=== PATIENT | male | born 1940 | race Two or more races ===

== ENCOUNTER 2017-03-16 15:19 | Observation (INO) | payer MEDICARE ==
[~2017-03-16] VITALS: Ht 172.7 cm; Wt 88.2 kg
[2017-03-16] MEDS ORDERED: OMEP40CA2 PO (15:31)
[2017-03-16] MEDS ORDERED: AMOX500C PO (15:31)
[2017-03-16] MEDS ORDERED: GASTROGRAFIN SOLUTION 30ML (Q9963) As Ordered ONE (16:28)
[2017-03-16] MEDS ORDERED: GASTROGRAFIN SOLUTION 30ML PO ONE (16:40)
[2017-03-16] MEDS: LR 1,000 ML IV SCH (16:44)
[2017-03-16 17:05] LABS: BASO # 0.1 K/mm3 (0.0-0.2); EOS # 0.2 K/mm3 (0.0-0.50); EOS % 3.4 % (0.0-3.0); LARGE UNSTAINED CELL # 0.1 K/mm3 (0.0-0.4); LARGE UNSTAINED CELL % 1.4 % (0.0-4.0); LYMPH # 1.1 K/mm3 (1.5-4.5); LYMPH % 15.7 % (24.0-44.0); MEAN CORPUSCULAR HGB CONC 35.1 g/dl (32.0-36.5); MEAN CORPUSCULAR VOLUME 91.3 fl (80.0-96.0); MONO # 0.5 K/mm3 (0.0-0.8); MONO % 7.9 % (0.0-5.0); NEUTROPHILS # 4.7 K/mm3 (1.8-7.7); NEUTROPHILS % 70.6 % (36.0-66.0); PLATELET COUNT, AUTOMATED 242 k/mm3 (150-450); RED CELL DISTRIBUTION WIDTH 13.2 % (11.5-14.5); WHITE BLOOD COUNT 6.6 K/mm3 (4.0-10.0)
--- NOTE | 2017-03-16 17:05 | REP ---
Clinical: Dyspnea. Rule out pneumonia . Comparison: None . Technique: PA and lateral. Findings: The mediastinum and cardiac silhouette are normal. The lung costa are clear and without acute consolidation, effusion, or pneumothorax. The skeletal structures are intact and normal. Impression: 1. No acute cardiopulmonary process. Signed by Isaac El MD 03/16/2017 04:56 P
[2017-03-16] MEDS ORDERED: GASTROGRAFIN SOLUTION 30ML (Q9963) PO ONE (17:10)
[2017-03-16 17:18] LABS: ALBUMIN 3.5 GM/DL (3.2-5.2); ALKALINE PHOSPHATASE 78 U/L (45-117); ALT/SGPT 42 U/L (12-78); AMYLASE 52 U/L (25-115); ANION GAP 7 MEQ/L (8-16); AST/SGOT 30 U/L (15-37); BILIRUBIN,TOTAL 0.4 MG/DL (0.2-1.0); BLOOD UREA NITROGEN 13 MG/DL (7-18); CALCIUM LEVEL 8.5 MG/DL (8.8-10.2); CARBON DIOXIDE LEVEL 23 MEQ/L (21-32); CHLORIDE LEVEL 109 MEQ/L (98-107); CREATININE FOR GFR 1.06 MG/DL (0.70-1.30); GLOMERULAR FILTRATION RATE > 60.0 (>42); GLUCOSE, FASTING 89 MG/DL (83-110); POTASSIUM SERUM 4.5 MEQ/L (3.5-5.1); SODIUM LEVEL 139 MEQ/L (136-145)
[2017-03-16] MEDS ORDERED: ISOVUE-370 76% 100ML VIAL (Q9967) As Ordered ONE (17:57)
[2017-03-16] MEDS ORDERED: ASPIRIN 81 MG CHEW TABLET PO ONE (18:15)
--- NOTE | 2017-03-16 18:35 | REP ---
Clinical: Abdominal pain. Peritonitis. Technique: Axial contrast enhanced images from the lung bases to the pubic symphysis using oral and 100 ml Isovue 370 intravenous contrast material with coronal and sagittal re-formations. Findings: Lung bases are clear. Visualized heart and pericardium relatively normal. Atherosclerotic changes to the thoracic aorta and coronary arteries noted. Liver, spleen, pancreas, gallbladder, bilateral adrenal glands are normal. The kidneys demonstrate mild chronic-appearing perinephric stranding and subtle age-related changes as well as suspected small bilateral nonobstructing calculi without hydroureteronephrosis. 1.2 cm right renal cyst noted. The enteric system is without obstruction or acute inflammatory process. Few scattered diverticula noted without acute diverticulitis. Pelvis demonstrates normal bladder and moderately enlarged prostate gland along with small fat containing left inguinal hernia. No ascites. No free air. No adenopathy. Abdominal aorta with atherosclerotic changes and no evidence for aneurysm or dissection. Musculoskeletal structures demonstrate age-related changes without focal osseous abnormality. Impression: 1. No obvious acute abdominopelvic pathology appreciated. 2. Chronic changes as described above. 3. No ascites, adenopathy, or free air. Signed by Isaac El MD 03/16/2017 06:26 P
[2017-03-16] MEDS ORDERED: diphenhydrAMINE INJ 50MG/ML VIAL (J1200) IV STA (19:27)
--- NOTE | 2017-03-16 19:36 | ECGEPIP ---
Stationary ECG Study [facility] - ED Test Date: 2017-03-16 Pat Name: SOFIA VALENCIA Department: Room: - Gender: M Orthopedic Dentist: aruna : 1940 Requested By: RADHA Michelle PA-C Order Number: [id number] Reading MD: Zurdo Hastings Measurements Intervals [place] Rate: 47 P: 20 CT: 175 QRS: -42 QRSD: 112 T: 1 QT: 459 QTc: 407 Interpretive Statements SINUS BRADYCARDIA LEFT AXIS DEVIATION POSSIBLE ANTERIOR MYOCARDIAL INFARCTION, OF INDETERMINATE AGE NSTTW ABNORMALITIES NO PRIORS Electronically Signed On 03-16-2017 19:36:37 EDT by Zurdo Hastings
--- NOTE | 2017-03-16 20:10 | REPUSA ---
CT of the head Clinical history: altered level of consciousness. Protocol: Multiple axial CT images obtained with 5 mm slice thickness were obtained through the head without administration of contrast. Comparison: None. Findings: The ventricles and sulci are symmetric but prominent in size bilaterally. There are periven tricular areas of low attenuation throughout the deep white matter. There is no evidence of acute hem orrhage or infarct. There is no midline shift, mass effect, or extra-axial fluid collection. The osse ous structures are unremarkable. The visualized paranasal sinuses and mastoid air cells are clear. Impression: No acute hemorrhage or infarct. Findings are consistent with age-related atrophy and taxonomist jeannine small vessel ischemic disease.
[2017-03-16 20:14] LABS: T UPTAKE 40 % (33-40); THYROXINE (T4) 9.1 UG/DL (4.5-12.0)
[2017-03-16] MEDS ORDERED: dexameTHASONE 20 MG/5 ML VIAL (J1100) IV ONE (23:30)
[2017-03-17] MEDS ORDERED: ONDANSETRON 4MG/2ML VIAL (J2405) IV PRN (00:15)
[2017-03-17] MEDS ORDERED: ACETAMINOPHEN TAB 650MG DOSE (2X325MG) PO PRN (00:15)
[2017-03-17] MEDS: LR 1,000 ML IV SCH ×4 (00:15→07:26)
[2017-03-17 01:50] VITALS: BP 175/77
[2017-03-17 05:51] LABS: BASO % 0.6 % (0.0-1.0); EOS % 0.6 % (0.0-3.0); LARGE UNSTAINED CELL % 0.6 % (0.0-4.0); LYMPH # 0.7 K/mm3 (1.5-4.5); LYMPH % 10.5 % (24.0-44.0); MEAN CORPUSCULAR HEMOGLOBIN 31.6 pg (27.0-33.0); MEAN CORPUSCULAR HGB CONC 34.5 g/dl (32.0-36.5); MEAN CORPUSCULAR VOLUME 91.7 fl (80.0-96.0); MONO # 0.1 K/mm3 (0.0-0.8); MONO % 1.4 % (0.0-5.0); NEUTROPHILS # 5.1 K/mm3 (1.8-7.7); NEUTROPHILS % 86.4 % (36.0-66.0); PLATELET COUNT, AUTOMATED 257 k/mm3 (150-450); RED CELL DISTRIBUTION WIDTH 13.3 % (11.5-14.5)
[2017-03-17 06:00] VITALS: BP 141/63
[2017-03-17 06:10] LABS: ANION GAP 8 MEQ/L (8-16); BLOOD UREA NITROGEN 11 MG/DL (7-18); CALCIUM LEVEL 8.9 MG/DL (8.8-10.2); CARBON DIOXIDE LEVEL 23 MEQ/L (21-32); CHLORIDE LEVEL 109 MEQ/L (98-107); GLOMERULAR FILTRATION RATE > 60.0 (>42); GLUCOSE, FASTING 129 MG/DL (83-110); POTASSIUM SERUM 4.1 MEQ/L (3.5-5.1); SODIUM LEVEL 140 MEQ/L (136-145)
[2017-03-17] MEDS ORDERED: hydrOXYzine 25 MG TAB PO PRN (06:30)
--- NOTE | 2017-03-17 07:28 | HPEPDOC ---
General Date of Admission Mar 17, 2017 at 00:06 Attending Physician: ARTIS REGAN MD Chief Complaint The patient is a 76-year-old male admitted with a reason for visit of Rash. Source: Patient Exam Limitations: No limitations History of Present Illness This is a 76-year-old male admitted with PMH of GERD, chronic etoh use, likely early dementia, reported decreased po intake x4 months, brought in for diffuse macular/papular rash, confluent, blanching, pruritic, palm/sole sparing that came on suddenly after starting abx (amoxacillin) for tooth infection. Pt has no hx of allergy to abx and has taken amoxacillin w/o adverse reaction in past, but developed rash soon after started current course. No other changes in diet, detergents, clothing, exposures recently that would also account for pt's sudden diffuse rash. In addition, family reporting significant decrease in po intake. They report that this has occurred over last 4months and that pt has recently moved closer to children due to decreased po intake and concern that he may not be taking care of himself/failure to thrive. Pt himself says he hasn't noted any real significant change in his po intake other than the last 2 days, which are attributed to his tooth infxn. Today reports he is very hungry, since he hasn't really eaten in the last 2days. In addition to decreased po intake (2days per pt vs 4months per children) he has reported mild nausea as well. Duration for this is also questionable, few days v few months. No significant wt loss, fevers /chills, diarrhea, constipation, heat/cold intolerance. Home Medications Scheduled Amoxicillin (Amoxicillin) 500 Mg Cap, 500 MG PO Q8H, (Reported) For 10 days - Started 03/09/17 Omeprazole (Omeprazole) 40 Mg Cap, 40 MG PO DAILY, (Reported) Allergies Coded Allergies: Prednisone (Verified Adverse Reaction, Mild, dizziness, 03/16/17) Past Medical History Medical History 1. GERD. 2. Rash. Surgical History None. Family History Significant Family History: No pertinent family hx Social History * Smoker: non-smoker Alcohol: other (Vodka-reports 3 drinks daily) Drugs: denies Recent Travel/Sick Contacts: Reports: Recent travel Psychosocial History: No pertinent psych hx Review of Symptoms Constitutional: Denies: Chills, Fever, Weakness Eyes: Denies: Pain ENT: Denies: Head Aches, Dysphagia Skin: Reports: Rash, Itching, Denies: Lesions Pulmonary: Denies: Dyspnea, Cough, Pleuritic Chest Pain Cardiovascular: Denies: Chest Pain, Palpitations, Orthopnea Gastrointestinal: Reports: Nausea, Denies: Vomiting, Abdominal Pain, Diarrhea, Constipation Genitourinary: Denies: Dysuria, Frequency Hematologic: Denies: Bruising, Bleeding Excessively Endocrine: Denies: Polydipsia, Polyphagia, Polyuria Musculoskeletal: Denies: Neck Pain, Back Pain Neurological: Denies: Weakness, Numbness Psych: Reports: Mood Normal, Memory Issues, Denies: Anxiety, Depression Physical Examination General Exam: Positive: Alert, Cooperative, No Acute Distress Eye Exam: Positive: Conjunctiva & lids normal, Negative: Sclera icteric ENT Exam: Positive: Atraumatic, Mucous membr. moist/pink Neck Exam: Positive: Supple, Negative: JVD, Lymphadenopathy Chest Exam: Positive: Clear to auscultation, Negative: Rales, Rhonchi, Wheezing Heart Exam: Positive: Rate Normal, Regular Rhythm, Normal S1, Negative: Tachycardic, Bradycardic, Irregular Rhythm, Gallops, Murmurs, Rubs Telemetry: Positive: No significant arrhythmia Abdomen Exam: Positive: Normal bowel sounds, Soft, Negative: BS Hyperactive, BS Hypoactive, Tenderness, Hepatospenomegaly Extremity Exam: Negative: Clubbing, Cyanosis, Edema Skin Exam: Positive: Nl turgor and temperature, Rash, Pruritus, Negative: Breakdown Neuro Exam: Positive: Normal Speech, Strength at 5/5 X4 ext, Cranial Nerves 3- 12 NL Psych Exam: Positive: Mental status NL, Mood NL, Oriented x 3, Negative: Memory Intact Vital Signs Vital Signs Date Time Temp Pulse Resp B/P (MAP) Pulse Ox O2 Delivery O2 Flow Rate FiO2 03/17/17 01:50 97.7 51 19 175/77 (109) 96 Room Air Laboratory Data Labs 24H Laboratory Tests 2 03/16/17 16:43: White Blood Count 6.6, Red Blood Count 4.48, Hemoglobin 14.3, Hematocrit 40.9L, Mean Corpuscular Volume 91.3, Mean Corpuscular Hemoglobin 32.0, Mean Corpuscular Hemoglobin Concent 35.1, Red Cell Distribution Width 13.2, Platelet Count 242, Neutrophils (%) (Auto) 70.6H, Lymphocytes (%) (Auto) 15.7L, Monocytes (%) (Auto) 7.9H, Eosinophils (%) (Auto) 3.4H, Basophils (%) (Auto) 1.0 , Neutrophils # (Auto) 4.7, Lymphocytes # (Auto) 1.1L, Monocytes # (Auto) 0.5, Eosinophils # (Auto) 0.2, Basophils # (Auto) 0.1, Large Unclassified Cells % 1.4 , Large Unclassified Cells # 0.1, Anion Gap 7L, Glomerular Filtration Rate > 60.0, Lactic Acid Level 1.1, Blood Urea Nitrogen 13, Creatinine 1.06, Sodium Level 139, Potassium Level 4.5, Chloride Level 109H, Carbon Dioxide Level 23, Calcium Level 8.5L, Aspartate Amino Transf (AST/SGOT) 30, Alanine Aminotransferase (ALT/SGPT) 42, Total Creatine Kinase 113, Alkaline Phosphatase 78, Total Bilirubin 0.4, Total Protein 7.0, Albumin 3.5, Creatine Kinase MB 1.0 , Creatine Kinase MB Relative Index 0.88, Troponin I < 0.02, Albumin/Globulin Ratio 1.00, Amylase Level 52, Lipase 168, Thyroid Stimulating Hormone (TSH) 0.719, Free Thyroxine Index 3.6, Thyroxine (T4) 9.1, Triiodothyronine (T3) Uptake 40 03/16/17 20:10: Ammonia 28 03/16/17 20:21: Urine Appearance CLEAR, Urine Color STRAW, Urine pH 6.0, Urine Specific [place] 1.040, Urine Protein NEGATIVE, Urine Glucose (UA) NEGATIVE, Urine Ketones NEGATIVE, Urine Urobilinogen 0.2, Urine Bilirubin NEGATIVE, Urine Leukocyte Esterase NEGATIVE, Urine Blood NEGATIVE, Urine Nitrite NEGATIVE, Urine WBC (Auto ) 0, Urine RBC (Auto) 0, Urine Hyaline Casts (Auto) 0, Urine Bacteria (Auto) NEGATIVE, Urine Squamous Epithelial Cells 0, Urine Sperm (Auto) CBC/BMP Laboratory Tests 03/16/17 16:43 Red Blood Count 4.48, Mean Corpuscular Volume 91.3, Mean Corpuscular Hemoglobin 32.0, Mean Corpuscular Hemoglobin Concent 35.1, Red Cell Distribution Width 13.2 , Neutrophils (%) (Auto) 70.6 H, Lymphocytes (%) (Auto) 15.7 L, Monocytes (%) ( Auto) 7.9 H, Eosinophils (%) (Auto) 3.4 H, Basophils (%) (Auto) 1.0, Neutrophils # (Auto) 4.7, Lymphocytes # (Auto) 1.1 L, Monocytes # (Auto) 0.5, Eosinophils # (Auto) 0.2, Basophils # (Auto) 0.1, Calcium Level 8.5 L, Aspartate Amino Transf (AST/SGOT) 30, Alanine Aminotransferase (ALT/SGPT) 42, Total Creatine Kinase 113, Alkaline Phosphatase 78, Total Bilirubin 0.4, Total Protein 7.0, Albumin 3.5 Assessment/Plan This is a 76-year-old male admitted with PMH of GERD, chronic etoh use, likely early dementia, reported decreased po intake x4 months, brought in for diffuse macular/papular rash 1. Macular/papular rash-likely drug rash Rash improving-less apparent on arms and legs, with less pruritis Continue prn atarax Off amoxacillin 2. Decreased po intake Pt has no evidence of sig nutritional deficiency on basic lab work Albumin normal, normal Hgb with normal MCV Will order Dietary consult, calorie count, B12, Folate, Fe studies 3. Mild cognitive impairment-early dementia CT head neg for acute pathology TFT's normal Low suspicion of sepsis but given infected tooth, will check lactic acid, in addition to B12, Folate, RPR ?placement SW consult placed in ED, will also request PT consult 4. GERD PPI 5. DVT prophylaxis Heparin sq Plan / VTE VTE Prophylaxis Ordered?: Yes Daniel King MD Mar 17, 2017 05:43
[2017-03-17] MEDS ORDERED: methylPREDNISolone INJ 40 MG/1 ML VIAL (J2920) IV SCH (08:00)
[2017-03-17] MEDS ORDERED: HEPARIN SOD (PORCINE) 5000 UNITS/ML VIAL SC SCH (09:00)
[2017-03-17 10:02] LABS: FOLATE 8.9 NG/ML (>5.4); VITAMIN B12 LEVEL 306 PG/ML (247-911)
[2017-03-17] MEDS ORDERED: PRED10TA2 PO (10:35)
[2017-03-17] MEDS ORDERED: PRED20TA PO (10:35)
[2017-03-17] MEDS ORDERED: PRED50TA PO (10:35)
[2017-03-17] MEDS ORDERED: LEVA1TAB2 PO (12:55)
[2017-03-17 14:00] VITALS: BP 152/71
--- NOTE | 2017-03-29 22:53 | DSES ---
DATE OF ADMISSION: 03/16/2017 DATE OF DISCHARGE: 03/17/2017 CONSULTANTS: None. PROCEDURES: None. PRIMARY DIAGNOSIS: Macular/papular rash. SECONDARY DIAGNOSES: 1. Decreased oral intake. 2. Mild cognitive impairment. 3. Gastroesophageal reflux disease (GERD). DISCHARGE HOME MEDICATIONS: - Levaquin 500 by mouth daily for 7 days - prednisone 10 mg by mouth daily for 3 days - prednisone 20 mg by mouth for 3 days - prednisone 40 mg by mouth for 3 days - omeprazole 40 mg by mouth daily HOSPITAL COURSE: Mr. Carnes is a 76-year-old with multiple past medical history , who presented to emergency room (ER) due to developing diffuse macular/papular rash, blanching and pruritic, palms and soles sparing, after starting antibiotic (amoxicillin) for tooth infection. Patient has no history of allergy to antibiotic and has taken amoxicillin without a rash in the past. Patient was off the amoxicillin and continued as needed Atarax. Also patient did not any evidence of the nutritional deficiencies and basic lab work. Albumin normal. Normal hemoglobin and normal MCV. CT of the head was negative was negative for acute pathology regarding mild cognitive impairment and thyroid function tests (TFTs) were normal. There was a low suspicion for sepsis; however, given the infected tooth, we checked the lactic acid in addition to vitamin B12, folate and RPR, which were negative. At the time of discharge, patient was medically optimized. We started patient on prednisone. Also we performed CT of abdomen and pelvis with intravenous (IV) and oral contrast, which shows no obvious acute abdominopelvic pathology. Also, chest x-ray did not show any acute cardiopulmonary process. We asked the patient to followup with the primary care. Due to the tooth infection, we have started the patient on Levaquin 500 mg by mouth for 7 days. We asked the patient to followup with the dentist. DISCHARGE PLACEMENT: Home. FOLLOWUP: Please followup with your primary care. ACTIVITY: As tolerated by patient. My preceptor for this patient encounter was Dr. Delonte Junior. The preceptor was physically present in the building during the encounter and was fully available as needed. All aspects of the patient interview, examination, medical decision making process, and medical care plan development were reviewed and approved by the preceptor. The preceptor is aware and concurs with the plan as stated in the body of this note and will attest to such by his/her co-signature. I, Delonte Junior, have both independently examined this patient as well as reviewed the documentation. I have discussed in detail with the resident the findings and plan of treatment as documented in the residents documentation. I will continue to follow the patient and offer further guidance to the patients care as necessary during this hospital stay. WINSTON
[2017-05-30] MEDS ORDERED: OMEP20CA3 PO (14:58)
[2017-05-30] MEDS ORDERED: EXCETAB80 PO (14:58)
== END 2017-03-17 15:23 | disposition home or self-care (01) ==
LOC: M ED 15:19 → M MSPAV 15:20 → UNDOADMOB 03-17 00:06 → M ED INP 03-17 00:06 → M MSPAV 03-17 01:54 → UNDODISOB 03-17 15:23
PROVIDERS: ATTEND Internal Medicine
DX: R21 Rash and other nonspecific skin eruption (principal); G31.84 Mild cognitive impairment of uncertain or unknown etiology; K21.9 Gastro-esophageal reflux disease without esophagitis; Z79.899 Other long term (current) drug therapy
CPT/HCPCS: 36415; 70450; 71020; 74177; 80048; 80053; 81001; 82140; 82150; 82550; 82553; 82607; 82746; 83605; 83690; 84436; 84443; 84479; 84484; 85025; 86780; 93005; 93041; 96372; 96374; 96375; 99285; G0378; J1100; J1200; J2920; Q9963; Q9967

== ENCOUNTER → 2017-03-28 | Outpatient (REF) | payer MEDICARE ==
[~2017-03-28] MED LIST: AMOX500C PO; EXCETAB80 PO; LEVA1TAB2 PO; OMEP20CA3 PO; OMEP40CA2 PO; PRED10TA2 PO; PRED20TA PO; PRED50TA PO
[2017-03-28 19:50] LABS: ALBUMIN 4.2 GM/DL (3.2-5.2); ALBUMIN/GLOBULIN RATIO 1.17 (1.00-1.93); ALKALINE PHOSPHATASE 92 U/L (45-117); ALT/SGPT 48 U/L (12-78); ANION GAP 8 MEQ/L (8-16); AST/SGOT 27 U/L (15-37); BILIRUBIN,TOTAL 0.4 MG/DL (0.2-1.0); BLOOD UREA NITROGEN 16 MG/DL (7-18); CALCIUM LEVEL 9.3 MG/DL (8.8-10.2); CARBON DIOXIDE LEVEL 28 MEQ/L (21-32); CHLORIDE LEVEL 102 MEQ/L (98-107); CREATININE FOR GFR 1.28 MG/DL (0.70-1.30); GLOMERULAR FILTRATION RATE 58.2 (>42); GLUCOSE, FASTING 160 MG/DL (83-110); POTASSIUM SERUM 4.7 MEQ/L (3.5-5.1); SODIUM LEVEL 138 MEQ/L (136-145); TOTAL PROTEIN 7.8 GM/DL (6.4-8.2)
[2017-03-31 11:13] LABS: HEP C VIRUS AB SCREEN MEDICARE < 0.0 INDEX (<0.8)
== END ==
LOC: M SFHCADAM 13:21
PROVIDERS: ATTEND Family Medicine
DX: Z00.00 Encounter for general adult medical examination without abnormal findings (principal); Z11.59 Encounter for screening for other viral diseases
CPT/HCPCS: 80053; G0463; G0472

== ENCOUNTER → 2017-05-02 | Outpatient (CLI) | payer MEDICARE ==
[2017-05-02 09:52] LABS: ANION GAP 9 MEQ/L (8-16); BLOOD UREA NITROGEN 17 MG/DL (7-18); CALCIUM LEVEL 8.5 MG/DL (8.8-10.2); CARBON DIOXIDE LEVEL 25 MEQ/L (21-32); CHLORIDE LEVEL 107 MEQ/L (98-107); CREATININE FOR GFR 1.13 MG/DL (0.70-1.30); GLOMERULAR FILTRATION RATE > 60.0 (>42); GLUCOSE, FASTING 83 MG/DL (83-110); POTASSIUM SERUM 4.6 MEQ/L (3.5-5.1); SODIUM LEVEL 141 MEQ/L (136-145)
== END ==
LOC: M LAB 08:38
PROVIDERS: ATTEND Family Medicine
DX: R73.9 Hyperglycemia, unspecified (principal); N17.9 Acute kidney failure, unspecified
CPT/HCPCS: 36415; 80048; G0463

== ENCOUNTER 2017-05-24 21:32 | Emergency (ER) | payer MEDICARE ==
[~2017-05-24] VITALS: Ht 175.3 cm; Wt 86.4 kg
[~2017-05-24 21:32] MED LIST changes: -EXCETAB80 PO; -OMEP20CA3 PO
[2017-05-24 22:10] LABS: BASO % 0.9 % (0.0-1.0); EOS # 0.1 K/mm3 (0.0-0.50); EOS % 1.8 % (0.0-3.0); LARGE UNSTAINED CELL # 0.2 K/mm3 (0.0-0.4); LARGE UNSTAINED CELL % 2.9 % (0.0-4.0); LYMPH # 1.7 K/mm3 (1.5-4.5); MEAN CORPUSCULAR HEMOGLOBIN 31.8 pg (27.0-33.0); MEAN CORPUSCULAR HGB CONC 34.7 g/dl (32.0-36.5); MEAN CORPUSCULAR VOLUME 91.6 fl (80.0-96.0); MONO # 0.3 K/mm3 (0.0-0.8); MONO % 5.7 % (0.0-5.0); NEUTROPHILS # 2.8 K/mm3 (1.8-7.7); NEUTROPHILS % 54.7 % (36.0-66.0); PLATELET COUNT, AUTOMATED 282 k/mm3 (150-450); RED CELL DISTRIBUTION WIDTH 12.9 % (11.5-14.5); WHITE BLOOD COUNT 5.1 K/mm3 (4.0-10.0)
[2017-05-24 22:22] LABS: ANION GAP 11 MEQ/L (8-16); BLOOD UREA NITROGEN 19 MG/DL (7-18); CALCIUM LEVEL 8.5 MG/DL (8.8-10.2); CARBON DIOXIDE LEVEL 23 MEQ/L (21-32); CHLORIDE LEVEL 106 MEQ/L (98-107); CREATININE FOR GFR 1.11 MG/DL (0.70-1.30); GLOMERULAR FILTRATION RATE > 60.0 (>42); GLUCOSE, FASTING 146 MG/DL (83-110); POTASSIUM SERUM 4.2 MEQ/L (3.5-5.1); SODIUM LEVEL 140 MEQ/L (136-145)
[2017-05-24] MEDS ORDERED: ACETAMINOPHEN TAB 650MG DOSE (2X325MG) PO ONE (22:30)
[2017-05-24] MEDS ORDERED: MORPHINE 2 MG/ML 1ML SYRINGE IV PRN (22:45)
[2017-05-24] MEDS ORDERED: ONDANSETRON 4MG/2ML VIAL (J2405) IV ONE (22:45)
[2017-05-24 23:15] LABS: VENOUS BASE EXCESS -2.5 (-2.0-2.0); VENOUS O2 SATURATION 82.4 % (60.0-80.0); VENOUS PARTIAL PRESSURE CO2 45.1 mmHg (38.0-50.0); VENOUS PARTIAL PRESSURE O2 49.3 mmHg (30.0-50.0); VENOUS TOTAL CO2 24.9 MEQ/L (24.0-28.0)
--- NOTE | 2017-05-24 23:44 | REP ---
Clinical: Altered mental status. Comparison: 03/16/2017 . Findings: Age-related atrophy and microvascular ischemic changes are appreciated. The ventricles and sulci are symmetric. Acosta-white differentiation is maintained. There is no evidence for acute intracranial hemorrhage, mass/mass effect, pathology or infarction. No extra-axial fluid collection. Calvarium is intact. Paranasal sinuses and mastoid air cells are clear. Impression: Age related atrophy and microvascular ischemic changes. No acute intracranial hemorrhage, infarction, or mass/mass effect. Signed by Isaac El MD 05/24/2017 11:36 P
[2017-05-25] MEDS ORDERED: KETOROLAC 30 MG/ML VIAL (J1885) IV ONE (00:15)
[2017-05-25] MEDS ORDERED: diphenhydrAMINE INJ 50MG/ML VIAL (J1200) IV ONE ×2 (00:15→01:15)
[2017-05-25] MEDS ORDERED: METOCLOPRAMIDE INJ 10MG/2ML VIAL (J2765) IV ONE ×2 (00:15→01:15)
[2017-05-25 04:38] VITALS: BP 157/67
--- NOTE | 2017-05-25 09:06 | REP ---
Clinical: Altered mental status. Comparison: 03/16/2017. Findings: The mediastinum and cardiac silhouette are stable and within normal limits for portable technique. The lung costa are clear without acute consolidation, effusion, or pneumothorax. Skeletal structures are intact. Impression: No acute cardiopulmonary process appreciated. Signed by Isaac El MD 05/25/2017 07:52 A
--- NOTE | 2017-05-25 10:21 | ECGEPIP ---
Stationary ECG Study [facility] - ED Test Date: 2017-05-24 Pat Name: SOFIA VALENCIA Department: Room: - Gender: M Anthropology Instructor: FosterB: 1940 Requested By: ADRIANNE Jamse Order Number: [id number] Reading MD: Yesenia Singh Measurements Intervals [place] Rate: 41 P: 15 [place]: 174 QRS: -42 QRSD: 117 T: -18 QT: 508 QTc: 422 Interpretive Statements SINUS BRADYCARDIA MARKED LEFT AXIS DEVIATION POSSIBLE ANTERIOR MYOCARDIAL INFARCTION, OF INDETERMINATE AGE NSTTW ABNORMALITY DECREASED RATE 03/16/17 Electronically Signed On 05-25-2017 10:21:20 EDT by Yesenia Singh
[2017-05-30] MEDS ORDERED: OMEP20CA3 PO (14:58)
[2017-05-30] MEDS ORDERED: EXCETAB80 PO (14:58)
== END 2017-05-25 04:39 | disposition home or self-care (01) ==
LOC: M ED 21:32
DX: G43.909 Migraine, unspecified, not intractable, without status migrainosus (principal); Z79.899 Other long term (current) drug therapy
CPT/HCPCS: 70450; 71010; 80048; 81001; 82550; 82553; 82803; 83036; 83605; 84484; 85025; 87086; 93005; 93041; 94760; 96374; 96375; 96376; 99285; J1200; J1885; J2405; J2765

== ENCOUNTER 2017-06-04 09:41 | Outpatient (CLI) | payer MEDICARE ==
[~2017-06-04] VITALS: Ht 175.3 cm; Wt 86.2 kg
[~2017-06-04 09:41] MED LIST changes: +EXCETAB80 PO; +OMEP20CA3 PO
[2017-06-04] MEDS ORDERED: NS 1,000 ML IV ONE (10:00)
[2017-06-04] MEDS ORDERED: LIDOCAINE 2% INJ 100 MG/5 ML SDV (FOR ANES.) As Ordered ONE ×2 (11:47→12:09)
[2017-06-04] MEDS ORDERED: PROPOFOL 200 MG/20 ML VIAL As Ordered ONE ×2 (11:47→12:09)
--- NOTE | 2017-06-04 12:26 | ROOR ---
Patient Name: Gautam Carnes Procedure Date: 06/04/2017 11:14 AM Date of : 1940 Age: 76 Room: [facility] Gender: Male Note Status: Finalized Procedure: Upper GI endoscopy Indications: Suspected gastro-esophageal reflux disease Providers: Yaakov Purcell MD Referring MD: Zandra Price DO Requesting Provider: Medicines: Monitored Anesthesia Care Complications: No immediate complications. Procedure: Pre-Anesthesia Assessment: - Prior to the procedure, a History and Physical was performed, and patient medications and allergies were reviewed. The patient is competent. The risks and benefits of the procedure and the sedation options and risks were discussed with the patient. All questions were answered and informed consent was obtained. Patient identification and proposed procedure were verified by the physician, the nurse and the anesthesiologist in the endoscopy suite. Mental Status Examination: alert and oriented. Airway Examination: normal oropharyngeal airway and neck mobility. Respiratory Examination: clear to auscultation. CV Examination: normal. Prophylactic Antibiotics: The patient does not require prophylactic antibiotics. Prior Anticoagulants: The patient has taken no previous anticoagulant or antiplatelet agents. ASA Grade Assessment: II - A patient with mild systemic disease. After reviewing the risks and benefits, the patient was deemed in satisfactory condition to undergo the procedure. The anesthesia plan was to use monitored anesthesia care (MAC). Immediately prior to administration of medications, the patient was re-assessed for adequacy to receive sedatives. The heart rate, respiratory rate, oxygen saturations, blood pressure, adequacy of pulmonary ventilation, and response to care were monitored throughout the procedure. The physical status of the patient was re-assessed after the procedure. The Endoscope was introduced through the mouth, and advanced to the third part of duodenum. The upper GI endoscopy was accomplished without difficulty. The patient tolerated the procedure well. Findings: The Z-line was irregular and was found 41 cm from the incisors. This was biopsied with a cold forceps for evaluation to rule out Newby's Esophagus. Estimated blood loss was minimal. Patchy moderate inflammation characterized by congestion (edema), erosions and erythema was found in the gastric antrum. Biopsies were taken with a cold forceps for histology. Biopsies were taken with a cold forceps for Helicobacter pylori testing. The third portion of the duodenum was normal. Impression: - Z-line irregular, 41 cm from the incisors. Biopsied. - Chronic gastritis. Biopsied. - Normal third portion of the duodenum. Recommendation: - Discharge patient to home (ambulatory). - Continue present medications. - Await pathology results. - Telephone my office for pathology results in 2 weeks. Yaakov Purcell MD Yaakov Purcell MD 06/04/2017 12:26:21 PM This report has been signed electronically. Number of Addenda: 0 Note Initiated On: 06/04/2017 11:14 AM Estimated Blood Loss: Estimated blood loss was minimal.
--- NOTE | 2017-06-04 12:29 | ROOR ---
Patient Name: Gautam Carnes Procedure Date: 06/04/2017 11:15 AM Date of : 1940 Age: 76 Room: [facility] Gender: Male Note Status: Finalized Procedure: Colonoscopy Indications: Screening for colorectal malignant neoplasm Providers: Yaakov Purcell MD Referring MD: Zandra Price DO Requesting Provider: Medicines: Monitored Anesthesia Care Complications: No immediate complications. Procedure: Pre-Anesthesia Assessment: - Prior to the procedure, a History and Physical was performed, and patient medications and allergies were reviewed. The patient is competent. The risks and benefits of the procedure and the sedation options and risks were discussed with the patient. All questions were answered and informed consent was obtained. Patient identification and proposed procedure were verified by the physician, the nurse and the anesthesiologist in the endoscopy suite. Mental Status Examination: alert and oriented. Airway Examination: normal oropharyngeal airway and neck mobility. Respiratory Examination: clear to auscultation. CV Examination: normal. Prophylactic Antibiotics: The patient does not require prophylactic antibiotics. Prior Anticoagulants: The patient has taken no previous anticoagulant or antiplatelet agents. ASA Grade Assessment: II - A patient with mild systemic disease. After reviewing the risks and benefits, the patient was deemed in satisfactory condition to undergo the procedure. The anesthesia plan was to use monitored anesthesia care (MAC). Immediately prior to administration of medications, the patient was re-assessed for adequacy to receive sedatives. The heart rate, respiratory rate, oxygen saturations, blood pressure, adequacy of pulmonary ventilation, and response to care were monitored throughout the procedure. The physical status of the patient was re-assessed after the procedure. The Colonoscope was introduced through the anus and advanced to the terminal ileum, with identification of the appendiceal orifice and IC valve. The colonoscopy was performed without difficulty. The patient tolerated the procedure well. The quality of the bowel preparation was adequate to identify polyps. Findings: The perianal and digital rectal examinations were normal. A few small-mouthed diverticula were found in the sigmoid colon. Estimated blood loss: none. The colon (entire examined portion) appeared normal. The terminal ileum appeared normal. Impression: - Diverticulosis in the sigmoid colon. - The entire examined colon is normal. - The examined portion of the ileum was normal. - No specimens collected. Recommendation: - Discharge patient to home (ambulatory). - Repeat colonoscopy in 10 years for screening purposes. Yaakov Purcell MD Yaakov Purcell MD 06/04/2017 12:28:47 PM This report has been signed electronically. Number of Addenda: 0 Note Initiated On: 06/04/2017 11:15 AM Estimated Blood Loss: Estimated blood loss: none.
[2017-06-04 12:55] VITALS: BP 155/79
== END 2017-06-04 13:20 | disposition home or self-care (01) ==
LOC: M OPP 09:41
PROVIDERS: ATTEND Surgery
DX: Z12.11 Encounter for screening for malignant neoplasm of colon (principal); K57.30 Diverticulosis of large intestine without perforation or abscess without bleeding; K21.9 Gastro-esophageal reflux disease without esophagitis; K22.8 Other specified diseases of esophagus; K29.70 Gastritis, unspecified, without bleeding; R00.8 Other abnormalities of heart beat; R23.3 Spontaneous ecchymoses; M19.90 Unspecified osteoarthritis, unspecified site; G43.909 Migraine, unspecified, not intractable, without status migrainosus; Z86.73 Personal history of transient ischemic attack (TIA), and cerebral infarction without residual deficits; R06.02 Shortness of breath; Z88.8 Allergy status to other drugs, medicaments and biological substances; Z88.0 Allergy status to penicillin; Z79.899 Other long term (current) drug therapy; Z80.1 Family history of malignant neoplasm of trachea, bronchus and lung
CPT/HCPCS: 43239; 88305; G0121

== ENCOUNTER 2017-08-09 19:02 | Emergency (ER) | payer MEDICARE ==
[~2017-08-09] VITALS: Ht 172.7 cm; Wt 86.4 kg
[2017-08-09 19:10] VITALS: BP 132/79
[2017-08-09] MEDS ORDERED: DOXY100C37 PO (20:27)
[2017-08-09] MEDS ORDERED: DOXYCYCLINE HYCLATE 100 MG TAB PO ONE (20:30)
== END 2017-08-09 20:40 | disposition home or self-care (01) ==
LOC: M ED 19:02
DX: S20.362A Insect bite (nonvenomous) of left front wall of thorax, initial encounter (principal); W57.XXXA Bitten or stung by nonvenomous insect and other nonvenomous arthropods, initial encounter; Y92.89 Other specified places as the place of occurrence of the external cause; Y93.89 Activity, other specified; Y99.8 Other external cause status; Z79.899 Other long term (current) drug therapy; Z88.0 Allergy status to penicillin; Z88.8 Allergy status to other drugs, medicaments and biological substances

== ENCOUNTER → 2017-11-28 | Outpatient (REF) | payer MEDICARE ==
[2017-11-28 12:44] LABS: BASO # 0.1 10^3/uL (0.0-0.2); BASO % 1.1 % (0.0-1.0); EOS # 0.1 10^3/uL (0.0-0.50); EOS % 1.4 % (0.0-3.0); HEMATOCRIT 45.3 % (42.0-52.0); HEMOGLOBIN 15.3 g/dl (14.0-18.0); IMMATURE GRANULOCYTE % 0.6 % (0-3.0); LYMPH # 2.2 10^3/uL (1.5-4.5); LYMPH % 33.7 % (24.0-44.0); MEAN CORPUSCULAR HEMOGLOBIN 30.5 pg (27.0-33.0); MEAN CORPUSCULAR HGB CONC 33.8 g/dl (32.0-36.5); MEAN CORPUSCULAR VOLUME 90.4 fl (80.0-96.0); MONO # 0.7 10^3/uL (0.0-0.8); MONO % 10.2 % (0.0-5.0); NEUTROPHILS # 3.5 10^3/uL (1.8-7.7); PLATELET COUNT, AUTOMATED 312 10^3/uL (150-450); RED BLOOD COUNT 5.01 10^6/uL (4.30-6.10); RED CELL DISTRIBUTION WIDTH 13.2 % (11.5-14.5); WHITE BLOOD COUNT 6.7 10^3/uL (4.0-10.0)
[2017-11-28 13:09] LABS: ALBUMIN 4.2 GM/DL (3.2-5.2); ALBUMIN/GLOBULIN RATIO 1.31 (1.00-1.93); ALKALINE PHOSPHATASE 74 U/L (45-117); ALT/SGPT 40 U/L (12-78); ANION GAP 7 MEQ/L (8-16); AST/SGOT 17 U/L (7-37); BILIRUBIN,TOTAL 0.5 MG/DL (0.2-1.0); BLOOD UREA NITROGEN 18 MG/DL (7-18); CALCIUM LEVEL 9.2 MG/DL (8.8-10.2); CARBON DIOXIDE LEVEL 28 MEQ/L (21-32); CHLORIDE LEVEL 105 MEQ/L (98-107); CREATININE FOR GFR 1.19 MG/DL (0.70-1.30); GLOMERULAR FILTRATION RATE > 60.0 (>42); GLUCOSE, FASTING 93 MG/DL (70-100); POTASSIUM SERUM 4.7 MEQ/L (3.5-5.1); SODIUM LEVEL 140 MEQ/L (136-145); TOTAL PROTEIN 7.4 GM/DL (6.4-8.2)
[2017-11-28 14:11] LABS: ERYTHROCYTE SEDIMENTATION RATE 6 mm/hr (0-20)
== END ==
LOC: M SFHCADAM 07:59
DX: R51 Headache (principal)
CPT/HCPCS: 80053

== ENCOUNTER → 2017-12-31 | Outpatient (REF) | payer MEDICARE ==
[2017-12-31 13:29] LABS: BASO # 0.1 10^3/uL (0.0-0.2); EOS # 0.1 10^3/uL (0.0-0.50); EOS % 1.4 % (0.0-3.0); HEMATOCRIT 45.1 % (42.0-52.0); HEMOGLOBIN 15.5 g/dl (13.5-17.5); IMMATURE GRANULOCYTE % 0.5 % (0-3.0); LYMPH # 1.7 10^3/uL (1.5-4.5); LYMPH % 28.5 % (24.0-44.0); MEAN CORPUSCULAR HEMOGLOBIN 31.3 pg (27.0-33.0); MEAN CORPUSCULAR HGB CONC 34.4 g/dl (32.0-36.5); MEAN CORPUSCULAR VOLUME 91.1 fl (80.0-96.0); MONO # 0.6 10^3/uL (0.0-0.8); MONO % 10.2 % (0.0-5.0); NEUTROPHILS # 3.4 10^3/uL (1.8-7.7); NEUTROPHILS % 58.4 % (36.0-66.0); PLATELET COUNT, AUTOMATED 307 10^3/uL (150-450); RED BLOOD COUNT 4.95 10^6/uL (4.30-6.10); RED CELL DISTRIBUTION WIDTH 13.2 % (11.5-14.5); WHITE BLOOD COUNT 5.8 10^3/uL (4.0-10.0)
[2017-12-31 14:14] LABS: ERYTHROCYTE SEDIMENTATION RATE 5 mm/hr (0-20)
[2017-12-31 14:20] LABS: ALBUMIN 4.3 GM/DL (3.2-5.2); ALBUMIN/GLOBULIN RATIO 1.23 (1.00-1.93); ALKALINE PHOSPHATASE 78 U/L (45-117); ALT/SGPT 45 U/L (12-78); ANION GAP 5 MEQ/L (8-16); AST/SGOT 26 U/L (7-37); BILIRUBIN,TOTAL 0.7 MG/DL (0.2-1.0); BLOOD UREA NITROGEN 16 MG/DL (7-18); CALCIUM LEVEL 9.4 MG/DL (8.8-10.2); CARBON DIOXIDE LEVEL 27 MEQ/L (21-32); CHLORIDE LEVEL 108 MEQ/L (98-107); CHOLESTEROL LEVEL 242 MG/DL (<200); CHOLESTEROL RISK RATIO 6.722 (<5); CREATININE FOR GFR 1.34 MG/DL (0.70-1.30); GLUCOSE, FASTING 95 MG/DL (70-100); HDL CHOLESTEROL 36 MG/DL (>40); LDL CHOLESTEROL 160.8 MG/DL (<100); NON-HDL-C 206 MG/DL; POTASSIUM SERUM 4.3 MEQ/L (3.5-5.1); RHEUMATOID FACTOR QUANT < 10.0 IU/ML (<15.0); SODIUM LEVEL 140 MEQ/L (136-145); TOTAL PROTEIN 7.8 GM/DL (6.4-8.2); TRIGLYCERIDES LEVEL 226 MG/DL (<150)
[2017-12-31 14:30] LABS: ESTIMATED AVERAGE GLUCOSE 108 MG/DL (60-110); HEMOGLOBIN A1c 5.4 %
[2017-12-31 15:00] LABS: VITAMIN B12 LEVEL 344 PG/ML
[2017-12-31 15:01] LABS: FOLATE 10.8 NG/ML
[2018-01-04 10:08] LABS: ANTINUCLEAR ANTIBODIES DIRECT Negative (Negative); VITAMIN B1 LEVEL WHOLE BLOOD 119.6 nmol/L (66.5-200.0); VITAMIN B6,PYRIDOXAL PHOSPHATE 6.5 ug/L (5.3-46.7); VITAMIN E(GAMMA TOCOPHEROL) 2.4 mg/L (0.5-4.9)
== END ==
LOC: M LABNEURO 07:59
DX: E11.9 Type 2 diabetes mellitus without complications (principal); E07.9 Disorder of thyroid, unspecified; Z86.73 Personal history of transient ischemic attack (TIA), and cerebral infarction without residual deficits; F03.90 Unspecified dementia, unspecified severity, without behavioral disturbance, psychotic disturbance, mood disturbance, and anxiety; Z11.3 Encounter for screening for infections with a predominantly sexual mode of transmission
CPT/HCPCS: 82746

== ENCOUNTER → 2018-01-09 | Outpatient (CLI) | payer MEDICARE | LOC: M RAD 09:28 | DX: I65.22 Occlusion and stenosis of left carotid artery (principal) | CPT/HCPCS: 93880 ==

== ENCOUNTER 2018-12-10 15:03 | Emergency (ER) | payer MEDICARE ==
[~2018-12-10 15:03] MED LIST changes: +DOXY100C37 PO
[2018-12-10] MEDS ORDERED: NS 1,000 ML IV ONE ×2 (16:00→18:15)
[2018-12-10] MEDS ORDERED: ONDANSETRON 4MG/2ML VIAL (J2405) IV ONE (16:00)
[2018-12-10 16:10] LABS: BASO % 0.3 % (0.0-1.0); EOS # 0.1 10^3/uL (0.0-0.50); EOS % 1.3 % (0.0-3.0); HEMATOCRIT 44.9 % (42.0-52.0); HEMOGLOBIN 15.4 g/dl (13.5-17.5); LYMPH # 2.1 10^3/uL (1.5-4.5); LYMPH % 23.3 % (24.0-44.0); MEAN CORPUSCULAR HEMOGLOBIN 31.4 pg (27.0-33.0); MEAN CORPUSCULAR HGB CONC 34.3 g/dl (32.0-36.5); MEAN CORPUSCULAR VOLUME 91.4 fl (80.0-96.0); MONO # 0.8 10^3/uL (0.0-0.8); MONO % 9.1 % (0.0-5.0); NEUTROPHILS # 5.9 10^3/uL (1.8-7.7); NEUTROPHILS % 65.8 % (36.0-66.0); PLATELET COUNT, AUTOMATED 292 10^3/uL (150-450); RED BLOOD COUNT 4.91 10^6/uL (4.30-6.10)
--- NOTE | 2018-12-10 16:10 | REP ---
Chest one-view HISTORY: Chest pain Comparison: 05/24/2017 The lungs are clear. The heart is normal in size. The pulmonary vasculature is normal in appearance. Impression: No acute disease. Electronically Signed by Ted Vega MD 12/10/2018 04:02 P
[2018-12-10 16:22] LABS: ALBUMIN 4.3 GM/DL (3.2-5.2); ALT/SGPT 38 U/L (12-78); AMYLASE 46 U/L (25-115); BILIRUBIN,DIRECT < 0.1 MG/DL (0.0-0.2); BILIRUBIN,TOTAL 0.7 MG/DL (0.2-1.0); BLOOD UREA NITROGEN 14 MG/DL (7-18); CALCIUM LEVEL 9.2 MG/DL (8.8-10.2); CARBON DIOXIDE LEVEL 25 MEQ/L (21-32); CHLORIDE LEVEL 108 MEQ/L (98-107); CK-MB VALUE MASS < 1.0 NG/ML (<3.6); CPK CREATINE PHOSPHOKINASE 88 U/L (39-308); CREATININE FOR GFR 1.12 MG/DL (0.70-1.30); GLOMERULAR FILTRATION RATE > 60.0 (>42); GLUCOSE, FASTING 102 MG/DL (70-100); LIPASE 72 U/L (73-393); MB/CK RELATIVE INDEX 1.14 (< OR =4); POTASSIUM SERUM 4.6 MEQ/L (3.5-5.1); SODIUM LEVEL 139 MEQ/L (136-145); TOTAL PROTEIN 7.3 GM/DL (6.4-8.2); TROPONIN I < 0.02 NG/ML (< 0.10)
[2018-12-10] MEDS ORDERED: ISOVUE-370 76% 100ML VIAL (Q9967) As Ordered ONE (16:33)
--- NOTE | 2018-12-10 17:48 | REP ---
Clinical: Abdominal pain. Technique: Axial contrast enhanced images from the lung bases to the pubic symphysis using 100 ml Isovue 370 intravenous contrast material with coronal and sagittal re-formations. Comparison: 03/16/2017. Findings: Lung bases are clear. Visualized heart and pericardium within normal limits. Diffuse fatty infiltration to the liver noted without focal hepatic lesion. Spleen, pancreas, gallbladder, bilateral adrenal glands are normal. Kidneys demonstrate age-related cortical atrophic change and 1 cm right renal cyst along with mild chronic-appearing perinephric stranding. The enteric system is without obstruction or obvious acute inflammatory process although mild enteritis cannot be excluded. Sigmoid diverticula noted without acute diverticulitis. Pelvis demonstrates enlarged prostate gland measuring 5.7 cm maximal diameter with mass effect on the base of the bladder. No ascites. No free air. No adenopathy. Abdominal aorta demonstrates atherosclerotic changes without aneurysm or dissection. Musculoskeletal structures demonstrate degenerative changes without focal osseous abnormality. Impression: 1. No obvious acute abdominopelvic pathology is appreciated although subtle enteritis cannot be excluded. 2. Hepatic steatosis. 3. Chronic stable changes to the kidneys including small right renal cyst. 4. Diverticulosis without acute diverticulitis. 5. Enlarged prostate gland with mass effect on the base of the bladder. Electronically Signed by Isaac El MD 12/10/2018 05:40 P
[2018-12-10] MEDS ORDERED: GI COCKTAIL 50ML BTL(HYOSCYAMINE/MAALOX/LIDOCAINE VISCOUS)(1:3:1) PO ONE (18:30)
[2018-12-10] MEDS ORDERED: PANTOPRAZOLE 40MG INJ (PROTONIX) (C9113) IV ONE (19:00)
[2018-12-10 19:19] LABS: INFLUENZA A AMPLIFICATION NEGATIVE (NEGATIVE); INFLUENZA B AMPLIFICATION NEGATIVE (NEGATIVE)
--- NOTE | 2018-12-10 20:05 | ECGEPIP ---
Stationary ECG Study [facility] - ED Test Date: 2018-12-10 Pat Name: SOFIA VALENCIA Department: Room: - Gender: M Manager Of Manufacturing: DARWIN : 1940 Requested By: CHELLE Dye Order Number: [id number] Reading MD: Yesenia Singh Measurements Intervals [place] Rate: 56 P: 57 CT: 180 QRS: -47 QRSD: 114 T: 5 QT: 437 QTc: 425 Interpretive Statements SINUS BRADYCARDIA PATTERN CONSISTENT WITH PULMONARY DISEASE LEFT ANTERIOR FASCICULAR BLOCK NONSPECIFIC T-WAVE ABNORMALITY INCREASED RATE 05/24/17 Electronically Signed On 12-10-2018 20:04:32 EDT by Yesenia Singh
[2018-12-10] MEDS ORDERED: ONDA4TAB6 PO (20:54)
[2018-12-10] MEDS ORDERED: SUCR1TA PO (20:54)
[2018-12-10] MEDS ORDERED: PRIL20TA2 PO (20:54)
[2018-12-10] MEDS ORDERED: ONDANSETRON 4 MG ORAL DISINTEGRATING TAB (Q0162 PER 1MG) PO ONE (21:00)
[2018-12-10 21:03] VITALS: BP 166/96
== END 2018-12-10 21:21 | disposition home or self-care (01) ==
LOC: M ED 15:03
DX: K52.9 Noninfective gastroenteritis and colitis, unspecified (principal); R00.1 Bradycardia, unspecified; Z88.0 Allergy status to penicillin; Z88.8 Allergy status to other drugs, medicaments and biological substances
CPT/HCPCS: 36415; 71045; 74177; 80048; 80076; 81001; 82150; 82550; 82553; 83605; 83690; 84484; 85025; 87040; 87502; 87507; 93005; 93041; 96374; 96375; 99285; C9113; G0463; J2405; Q0162; Q9967

== ENCOUNTER 2019-05-06 07:55 | Emergency (ER) | payer MEDICARE ==
[~2019-05-06] VITALS: Ht 172.7 cm; Wt 87.0 kg
[~2019-05-06 07:55] MED LIST changes: -OMEP20CA3 PO; +OMEP20CA4 PO; +ONDA4TAB6 PO; +PRIL20TA2 PO; +SUCR1TA PO
[2019-05-06] MEDS ORDERED: SIMV20TA2 (08:02)
[2019-05-06 09:55] LABS: BASO % 0.2 % (0.0-1.0); EOS # 0.2 10^3/uL (0.0-0.50); EOS % 1.8 % (0.0-3.0); HEMATOCRIT 44.2 % (42.0-52.0); HEMOGLOBIN 15.3 g/dl (13.5-17.5); LYMPH # 2.1 10^3/uL (1.5-4.5); LYMPH % 22.6 % (24.0-44.0); MEAN CORPUSCULAR HEMOGLOBIN 31.6 pg (27.0-33.0); MEAN CORPUSCULAR HGB CONC 34.6 g/dl (32.0-36.5); MEAN CORPUSCULAR VOLUME 91.3 fl (80.0-96.0); MONO # 0.8 10^3/uL (0.0-0.8); NEUTROPHILS # 6.4 10^3/uL (1.8-7.7); PLATELET COUNT, AUTOMATED 303 10^3/uL (150-450); RED BLOOD COUNT 4.84 10^6/uL (4.30-6.10); WHITE BLOOD COUNT 9.5 10^3/uL (4.0-10.0)
[2019-05-06 10:21] LABS: ALT/SGPT 37 U/L (12-78); BILIRUBIN,DIRECT 0.2 MG/DL (0.0-0.2); BILIRUBIN,TOTAL 0.6 MG/DL (0.2-1.0); BLOOD UREA NITROGEN 20 MG/DL (7-18); CALCIUM LEVEL 8.9 MG/DL (8.8-10.2); CARBON DIOXIDE LEVEL 23 MEQ/L (21-32); CHLORIDE LEVEL 107 MEQ/L (98-107); CREATININE FOR GFR 1.16 MG/DL (0.70-1.30); GLOMERULAR FILTRATION RATE > 60.0 (>42); GLUCOSE, FASTING 92 MG/DL (70-100); LIPASE 99 U/L (73-393); POTASSIUM SERUM 4.2 MEQ/L (3.5-5.1); SODIUM LEVEL 138 MEQ/L (136-145); TOTAL PROTEIN 7.1 GM/DL (6.4-8.2)
[2019-05-06] MEDS ORDERED: NS 500 ML IV ONE (10:45)
[2019-05-06] MEDS ORDERED: ISOVUE-370 76% 100ML VIAL (Q9967) As Ordered ONE (10:48)
[2019-05-06] MEDS ORDERED: ONDANSETRON 4MG/2ML VIAL (J2405) IV ONE (11:00)
--- NOTE | 2019-05-06 11:45 | REP ---
CT of the abdomen pelvis with IV contrast, without bowel contrast for epigastric pain and diarrhea: There are is a comparison study dated 12/10/2018. The visualized lung costa are unremarkable. The hepatic parenchyma, gallbladder, pancreas and spleen are unremarkable except that the liver is less dense than the spleen suggestive of hepatic steatosis. The adrenals and kidneys are unremarkable except for A small Bosniak type 1 right renal cyst at the lower pole, unchanged. The abdominal aorta is unremarkable. The bowel and mesentery are unremarkable except for occasional diverticula in the descending colon and sigmoid colon without CT evidence of diverticulitis. Pelvis: The appendix is not identified, however, there is no pericecal phlegmon. There is no ascites or adenopathy. The bladder is unremarkable. The prostate is enlarged as previously. Impression: Diverticulosis without diverticulitis, unchanged. Hepatic steatosis, unchanged. Right renal cyst, unchanged. Enlarged prostate, unchanged. Otherwise, negative CT of the abdomen and pelvis. Electronically Signed by Carlo Adamson MD 05/06/2019 11:36 A
[2019-05-06 12:17] LABS: CK-MB VALUE MASS < 1.0 NG/ML (<3.6); CPK CREATINE PHOSPHOKINASE 93 U/L (39-308); MB/CK RELATIVE INDEX 1.08 (< OR =4); TROPONIN I < 0.02 NG/ML (< 0.10)
--- NOTE | 2019-05-06 12:21 | REP ---
PA and lateral chest: Comparison is 03/16/2017. The lung costa are clear. The cardiac size is normal. The andrea, mediastinum, and skeletal structures are unremarkable. Impression: Negative PA and lateral chest. There is no interval change. Electronically Signed by Carlo Adamson MD 05/06/2019 12:13 P
[2019-05-06 12:30] VITALS: BP 151/70
[2019-05-06 12:42] VITALS: O2SAT 98
--- NOTE | 2019-05-06 21:25 | ECGEPIP ---
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
== END 2019-05-06 13:24 | disposition home or self-care (01) ==
LOC: M ED 07:55
DX: R19.7 Diarrhea, unspecified (principal); R05 Cough; R11.0 Nausea; R00.1 Bradycardia, unspecified; K57.30 Diverticulosis of large intestine without perforation or abscess without bleeding; K44.9 Diaphragmatic hernia without obstruction or gangrene; N18.9 Chronic kidney disease, unspecified; E78.5 Hyperlipidemia, unspecified; Z86.73 Personal history of transient ischemic attack (TIA), and cerebral infarction without residual deficits; Z88.0 Allergy status to penicillin; Z88.8 Allergy status to other drugs, medicaments and biological substances; Z79.899 Other long term (current) drug therapy
CPT/HCPCS: 71046; 74177; 80048; 80076; 82550; 82553; 83690; 84484; 85025; 93005; 93041; 96361; 96374; 99285; J2405; Q9967